=== PATIENT | male | born 1935 | race Hispanic/Latino ===

== ENCOUNTER 2017-01-22 22:55 | Inpatient (IN) | payer MEDICARE ==
[~2017-01-22 22:55] MED LIST: ISOVUE-370 76%-LOCM 1 ML ONE
[2017-01-22] MEDS ORDERED: Ondansetron HCl/PF 4 MG/2 ML Vial ONE (23:21)
[2017-01-22 23:28] LABS: #Basophils 0.1 thou/uL (0.0-0.2); #Eosinphils 0.2 thou/uL (0.0-0.7); #Lymphocytes 1.3 thou/uL (1.20-3.40); #Monocytes 0.6 thou/uL (0.11-0.59); #Neutrophils 11.4 thou/uL (1.40-6.50); %Basophils 0.4 % (0.0-1.0); %Eosinophils 1.1 % (0.0-10.0); %Lymphocytes 9.7 % (21.0-51.0); %Monocytes 4.6 % (0.0-10.0); Hematocrit 46.5 % (42.0-52.0); Red Blood Cell (RBC) Count 5.24 mill/uL (4.70-6.10); White Blood Cell (WBC) Count 13.6 thou/uL (4.8-10.8)
--- NOTE | 2017-01-22 23:49 | RAD ---
CHEST ONE VIEW ABDOMEN TWO VIEWS: History: 81-year-old male with epigastric pain for three hours without fever. FINDINGS: No significant acute process in the chest. There is a left ICD. There is a prominent air fluid level within the stomach. There is very little gas in the abdomen. There is an appearance of some possibl e fluid filled small bowel loops which raises the possibility of small bowel obstruction. Post-opera tive changes are noted in the pelvis, which are stable from a 11-14-16 study. IMPRESSION: Relative gas-less appearance to the abdomen with what appear to be some dilated fluid filled small b owel loops raising concern for small bowel obstruction. No free intraperitoneal air. No overt calcul us. POS: [facility]
[2017-01-22 23:57] LABS: Troponin I Less than 0.010 ng/mL (< 0.028)
[2017-01-23 00:23] LABS: ALT (SGPT) 18 U/L (8-55); AST (SGOT) 32 U/L (5-34); Alkaline Phosphatase 108 U/L (40-150); Anion Gap 19 mmol/L (10-20); BUN (Urea Nitrogen) 17 mg/dL (8.4-25.7); Bilirubin, Total 0.7 mg/dL (0.2-1.2); Calc. Creatinine Clearance 0 mL/min (70-130); Calcium 10.2 mg/dL (7.8-10.44); Carbon Dioxide 20 mmol/L (23-31); Chloride 104 mmol/L (98-107); Estimated GFR-MDRD 66; Globulin 3.9 g/dL (2.4-3.5); Protein, Total 8.8 g/dL (5.8-8.1)
[2017-01-23 01:34] LABS: Bilirubin Negative (Negative); Blood, Urine Negative (Negative); Glucose, Urine (Dipstick) Negative (Negative); Ketone, Urine Negative (Negative); Nitrite Negative (Negative); Protein, Urine (Dipstick) Negative (Neg-Trace); Urobilinogen 0.2 mg/dL (0.2-1.0)
[2017-01-23] MEDS ORDERED: Benzocaine 20% Spray 60 ML CAN ONE (01:54)
[2017-01-23] MEDS ORDERED: Pantoprazole 40 MG VIAL ONE (02:17)
[2017-01-23] MEDS ORDERED: Ondansetron HCl/PF 4 MG/2 ML Vial IVP PRN (03:08)
[2017-01-23] MEDS ORDERED: Fleet Enema 133 ML BOT PR PRN (03:08)
[2017-01-23] MEDS ORDERED: Bisacodyl 10 MG SUPP PR PRN (03:08)
[2017-01-23] MEDS ORDERED: Dextrose 5% in Water 1,000 ML IV PRN (03:08)
[2017-01-23] MEDS ORDERED: Dextrose 50% Abboject 50 ML SYRINGE SLOW IVP PRN (03:08)
[2017-01-23] MEDS ORDERED: HumaLOG 300 UNITS/3 ML VIAL SC PRN (03:08)
[2017-01-23] MEDS ORDERED: Acetaminophen 650 MG Suppository PR PRN (03:08)
[2017-01-23] MEDS ORDERED: Acetaminophen 325 MG TAB PO PRN (03:08)
[2017-01-23] MEDS ORDERED: Sodium Chloride 0.9% 1,000 ML IV SCH (03:15)
[2017-01-23 04:25] VITALS: BMI 29.0
[2017-01-23 05:59] LABS: Anion Gap 16 mmol/L (10-20); BUN (Urea Nitrogen) 17 mg/dL (8.4-25.7); Calc. Creatinine Clearance 74 mL/min (70-130); Calcium 9.2 mg/dL (7.8-10.44); Carbon Dioxide 18 mmol/L (23-31); Chloride 106 mmol/L (98-107); Estimated GFR-MDRD 84
--- NOTE | 2017-01-23 06:29 | HP ---
REASON FOR ADMISSION: Small-bowel obstruction. HISTORY OF PRESENTING ILLNESS: Patient gives history of abdominal pain, which started yesterday evening. This was in the epigastric area. He also had abdominal distention prior to arrival here. No complaints of chest pain, palpitations, PND, or orthopnea. The epigastric pain continued for 3 hours. As the pain continued, patient was brought to emergency room by his . Last bowel movement was yesterday and it appeared normal per patient. No complaints of nausea or vomiting. He has had an NG tube placed and has had some decompression done and feels a little better at present. PAST MEDICAL AND SURGICAL HISTORY: History of CHF with diastolic dysfunction. bradycardia with pacemaker placement, hypertension, chronic anemia, dyslipidemia , benign prostatic hypertrophy, irritable bowel syndrome, prior history of colon surgery done 20 to 30 years ago and he does not know exactly what was done , cholecystectomy, history of pelvic fracture with repair. PERSONAL HISTORY: Does not abuse alcohol or drugs. No history of smoking. FAMILY HISTORY: No history of heart disease. Lives with his and has three children ALLERGIES: To PENICILLIN. CURRENT MEDICATIONS AT HOME: Patient is on Lopid 600 mg p.o. twice daily, lisinopril 20 mg p.o. daily, Flomax 0.4 mg p.o. at bedtime, Lasix 20 mg p.o. daily, finasteride 5 mg p.o. daily, ferrous sulfate 325 mg p.o. daily, bisoprolol 10 mg p.o. daily, aspirin 81 mg p.o. daily. REVIEW OF SYSTEMS: The following complete review of systems was negative, unless otherwise mentioned in the HPI or below: Constitutional: Weight loss or gain, ability to conduct usual activities. Skin: Rash, itching. Eyes: Double vision, pain. ENT/Mouth: Nose bleeding, neck stiffness, pain, tenderness. Cardiovascular: Palpitations, dyspnea on exertion, orthopnea. Respiratory: Shortness of breath, wheezing, cough, hemoptysis, fever, or night sweats. Gastrointestinal: Poor appetite, abdominal pain, heartburn, nausea, vomiting, constipation, or diarrhea. Genitourinary: Urgency, frequency, dysuria, nocturia. Musculoskeletal: Pain, swelling. Neurologic/Psychiatric: Anxiety, depression. Allergy/Immunologic: Skin rash, bleeding tendency. PHYSICAL EXAMINATION: GENERAL: The patient is a 81-year-old male who is currently in mild distress from epigastric pain. VITAL SIGNS: Blood pressure 146/74, pulse 66 per minute, respiratory rate 18 per minute, temperature 98.3 degrees Fahrenheit, saturating 97% on room air. NECK: Supple, no elevated JVD. HEENT: Eyes: Extraocular muscles intact. Pupils reacting to light. Oral cavity mucous membranes are moist. No exudates or congestion. CARDIOVASCULAR SYSTEM: S1, S2 heard. Regular rhythm. RESPIRATORY SYSTEM: Air entry 1+ bilateral. No rales or rhonchi. ABDOMEN: Slightly tender in the epigastric area. No rigidity or guarding. There is mild distention. EXTREMITIES: No peripheral edema or calf tenderness. VASCULAR SYSTEM: Peripheral pulses 1+ bilateral. No ischemic ulcerations or gangrene. CENTRAL NERVOUS SYSTEM: No gross focal deficits seen. Patient is alert, awake , oriented x3. PSYCHIATRIC SYSTEM: The patient's mood is euthymic. No hallucinations or delusions. LABORATORY DATA AND X-RAY FINDINGS: White count of 13, H\T\H is 15 and 46, platelet count 247, MCV is 88 with 84% neutrophils. Electrolytes, serum bicarbonate is 20, BUN 17, creatinine 1.0, glucose 172. Liver enzymes are within normal limits. Albumin is 4.9. First set of cardiac enzymes are negative. Acute abdominal series x-ray done shows gastric distention with some dilated fluid-filled small bowels raising concern for small-bowel obstruction, no free air was seen. CLINICAL IMPRESSION AND PLAN: Patient will be admitted to surgical floor for small-bowel obstruction. He has had NG tube dropped and will be on intermittent suction. He will keep him n.p.o. He will be on normal saline at 70 mL per hour. We will hold off on all other medications for now. Pepcid 20 mg IV q.[address] Oh has been consulted from ER for General Surgery. We will continue to closely monitor him for any hemodynamic compromise. Please note, patient has a CT of the abdomen and pelvis done, the official reports are pending at present. Once his bowels start moving, he needs to be reinstituted with his home medications, specially cardiac meds. MTDD
[2017-01-23] MEDS ORDERED: Chloraseptic Spray 180 ml Bottle PO PRN (07:41)
--- NOTE | 2017-01-23 08:36 | RAD ---
POPRTABLE AP ABDOMINAL RADIOGRAPH: Date: 01-23-17 History: Epigastric pain for three hours. Afebrile. FINDINGS: Lower abdomen as well as right lateral abdomen are excluded from view on this exam. A nasogastric tu be is noted in place which overlying the abdomen with tip overlying the body of the stomach. There i s gaseous distention of the stomach. A dual-lead left subclavian cardiac pacemaking device is noted in place. Cardiac silhouette is magnified by projection, stable in size compared to study on 11-24-16. There is linear scarring versus atelectasis at the left lung base. Degenerative changes are seen in the spine. IMPRESSION: 1. Nasogastric tube noted in place with tip overlying the body of the stomach. There is gaseous dist ention of the stomach. 2. Exclusion of the lower abdomen as well as the pelvis. POS: [facility]
--- NOTE | 2017-01-23 08:39 | CT ---
PRELIMINARY REPORT/[facility]/EMERGENCY AFTER HOURS PROCEDURE: EXAM: CT Abdomen and Pelvis With Intravenous Contrast CLINICAL HISTORY: 81 years old, male; Pain; Abdominal pain; Generalized TECHNIQUE: Axial computed tomography images of the abdomen and pelvis with intravenous contrast. Coronal reformatted images were created and reviewed. CONTRAST: 100 mL of ISOVUE administered intravenously. COMPARISON: No relevant prior studies available. FINDINGS: LUNG BASES: Mild atelectasis and/or pulmonary parenchymal scarring. VASCULAR: Mild cardiac enlargement. Pacemaker leads are seen in the right heart. Mild atherosclerosis. No abdo sachin aortic aneurysm, dissection, or retroperitoneal hematoma. PERITONEAL : No free air or free fluid. GI: No hiatal hernia. The stomach is distended with an air fluid level and ingested material and gas. Small bowel loops are mildly distended throughout the central abdomen with fluid, upto 2.8 cm in bita meter. The terminal ileum is not distended. No focal point of transition is identified. Differential for bowel dilation could be secondary to gastroenteritis, ileus or mild/developing obstruction. Con eligibility consultant small bowel follow through for further assessment as clinically indicated. Scattered fecal material and gas within portions of the colon. Colonic postoperative changes are not ed at the sigmoid colon. Mildly elevated perirectal vascularity could be correlated from mild procti tis or hemorrhoids. HEPATOBILIARY, PANCREAS, SPLEEN: Sagittal hepatic length is 17 cm. The gallbladder has been removed. No significant biliary dilation. No pancreatic inflammation. Spleen not enlarged. ADRENALS, KIDNEYS, BLADDER, RETROPERITONEAL: Adrenals within normal limits. No hydronephrosis. Symmetric renal enhancement and excretion. Mild nonspecific perinephric stranding . Slightly thick walled urinary bladder may be artifact due to lack of distention. Heterogeneous enlarged prostate impressing along the base of the bladder. Mild torey-prostate hazines s noted. Clinical correlation for mild prostatitis. MUSCULOSKELETAL: Prominent fat within the right inguinal canal. Degenerative changes of the spine and within the pelvis. Fixation plate noted across the pubic symphysis. Right sacroiliac screw noted. IMPRESSION: No free air, free fluid or focal mesenteric inflammation. Gastrointestinal findings as discussed above, to be correlated clinically. Enlarged slightly heterogeneous prostate. Clinical correlation and followup is advised. Other incidental and non-emergent findings discussed above. Thank you for allowing us to participate in the care of your patient. Dictated and Authenticated by: Martin Zarco MD 01/23/2017 1:16 AM Central Time ([place] \T\ [place]) FINAL REPORT EMERGENT AFTER HOURS STUDY CT ABDOMEN WITH CONTRAST CT PELVIS WITH CONTRAST: Date: 01-23-17 History: Abdominal pain which started around 2000 hours after eating. Comparison: 08-25-15 IMPRESSION: 1. Mild cardiomegaly with cardiac pacemaking leads seen in right atrial appendage and in the right v entricle. 2. Bibasilar atelectasis. 3. Post cholecystectomy changes. 4. Mildly dilated fluid filled loops of small bowel without a definitive transition point seen, but there are more normal caliber loops of small bowel further distally. Findings may be related to a lo w grade partial small bowel obstruction or possibly ileus. 5. Post-surgical changes in the region of the sigmoid colon. 6. Enlargement of the prostate gland with the prostate measuring 6.8 cm in transverse dimensions. Th is was also seen on the prior study. Prostate gland is mildly enlarged. 7. Contrast is seen in the base of the urinary bladder, but as noted on the prior study, there are u rinary bladder calculi better seen on the prior study. There is no hydronephrosis seen. 8. Post-surgical changes right sacroiliac joint and involving the pubic bones. 9. Small fat containing right inguinal hernia. 10. Findings are in agreement with preliminary report by KYLE. Code QA POS: [facility]
[2017-01-23] MEDS ORDERED: FLU VACC TS2017-18 (>65YR) 0.5 ML SYRINGE IM ONE (09:00)
[2017-01-23] MEDS: Famotidine/PF 20 mg/2ml Vial SLOW IVP SCH ×2 (09:12→20:10)
[2017-01-23] MEDS: Heparin 5,000 UNITS/ML VIAL SC SCH ×2 (09:12→20:04)
--- NOTE | 2017-01-23 15:51 | PDOC.PN ---
- Subjective Encounter Start Date: 01/23/17 Encounter Start Time: 15:35 Subjective: f/u for ? SBO vs Ileus and SBFT today. No evidence of obstruction and -: pt denies any abd complaints. - Objective Resuscitation Status: Resuscitation Status FULL:Full Resuscitation MAR Reviewed: Yes Vital Signs & Weight: Vital Signs (12 hours) Temp Pulse Resp BP Pulse Ox 01/23/17 11:23 98.2 F 62 16 164/81 H 98 01/23/17 08:00 97.6 F 87 16 01/23/17 07:32 97.6 F 87 16 165/81 H 99 I&O: 01/22/17 01/23/17 01/24/17 06:59 06:59 06:59 Intake Total 280 Output Total 150 Balance 130 Result Diagrams: 01/22/17 23:20 01/23/17 04:54 Additional Labs: Accuchecks 01/23/17 01/23/17 11:22 05:05 POC Glucose 115 H 153 H Radiology Reviewed by me: Yes (SBFT - negative) Phys Exam - Physical Examination Constitutional: NAD NGT in R nares HEENT: PERRLA, oral pharynx no lesions Neck: no JVD, supple Respiratory: no wheezing, clear to auscultation bilateral Cardiovascular: RRR Gastrointestinal: soft, non-tender, no distention, positive bowel sounds Musculoskeletal: no edema, pulses present Neurological: normal sensation, moves all 4 limbs Psychiatric: A&O x 3 Skin: normal turgor, cap refill <2 seconds Dx/Plan (1) Ileus Code(s): K56.7 - ILEUS, UNSPECIFIED Status: Acute Comment: Resolved, SBFT negative, d/c NGT, clear liquids as tolerated (2) CKD (chronic kidney disease) stage 2, GFR 60-89 ml/min Code(s): N18.2 - CHRONIC KIDNEY DISEASE, STAGE 2 (MILD) Status: Chronic Comment: Stable, continue to monitor clinically (3) HTN (hypertension) Code(s): I10 - ESSENTIAL (PRIMARY) HYPERTENSION Status: Chronic Qualifiers: Hypertension type: essential hypertension Qualified Code(s): I10 - Essential (primary) hypertension Comment: Resume home BP regimen (4) Hyperglycemia Code(s): R73.9 - HYPERGLYCEMIA, UNSPECIFIED Status: Chronic Comment: Continue supportive measures, ADA diet, no specific dx of DM - Plan plan discussed w/ family, out of bed/ambulate, DVT proph w/SCDs Stable overall -: D/C NGT -: Saline lock IVF's -: Clear liquid diet -: Likely home in 24h * .
[2017-01-23] MEDS ORDERED: Furosemide 20 MG TAB PO PRN (15:56)
--- NOTE | 2017-01-23 16:04 | RAD ---
GASTROGRAFIN SMALL BOWEL FOLLOW THROUGH: 01/23/17 HISTORY: Abdominal pain. Obstruction. FINDINGS: Abdominal pain. Obstruction. FINDINGS: Gastrografin contrast was administered through the nasogastric tube. Nondilated small bowel is opaci fied on the early images. Contrast reaches the colon at one hour. IMPRESSION: No evidence of significant small bowel obstruction. POS: [facility]
[2017-01-23] MEDS ORDERED: MD-Gastroview 120 ML BOT ONE (16:44)
[2017-01-23] MEDS: Famotidine 20 MG TAB PO SCH (20:11)
[2017-01-23] MEDS ORDERED: Tamsulosin HCl 0.4 MG CAP PO SCH (21:00)
[2017-01-24] MEDS ORDERED: Gemfibrozil 600 MG TAB PO SCH (07:30)
[2017-01-24] MEDS: Famotidine 20 MG TAB PO SCH (08:46)
[2017-01-24] MEDS: Heparin 5,000 UNITS/ML VIAL SC SCH (08:49)
[2017-01-24] MEDS ORDERED: Ferrous Gluconate 324 MG TAB PO SCH (09:00)
[2017-01-24] MEDS ORDERED: Finasteride 5 MG TAB PO SCH (09:00)
[2017-01-24] MEDS ORDERED: Aspirin 81 mg Enteric Coated Tablet PO SCH (09:00)
[2017-01-24] MEDS ORDERED: Lisinopril 20 MG TAB PO SCH (09:00)
[2017-01-24] MEDS ORDERED: Bisoprolol Fumarate 5 MG TAB PO SCH (09:00)
[2017-01-24] MEDS ORDERED: FERROUS GLUCONATE 325 MG PO SCH (09:00)
--- NOTE | 2017-01-24 10:19 | PDOC.PN ---
- Subjective Encounter Start Date: 01/24/17 Encounter Start Time: 07:55 -: old records requested/rev Patient seen and examined. No new complaints. No overnight events - Objective Resuscitation Status: Resuscitation Status FULL:Full Resuscitation MAR Reviewed: Yes Vital Signs & Weight: Vital Signs (12 hours) Temp Pulse Resp BP BP Pulse Ox 01/24/17 08:46 143/73 H 01/24/17 08:00 98.2 F 63 16 99 01/24/17 07:04 98.2 F 63 16 143/73 H 99 01/24/17 03:52 98.1 F 71 20 126/80 96 01/24/17 00:00 97.9 F 62 18 143/78 H 94 L I&O: 01/23/17 01/24/17 01/25/17 06:59 06:59 06:59 Intake Total 520 480 Output Total 150 Balance 370 480 Result Diagrams: 01/22/17 23:20 01/23/17 04:54 Additional Labs: Accuchecks 01/23/17 11:22 POC Glucose 115 H Radiology Reviewed by me: Yes Phys Exam - Physical Examination Constitutional: NAD HEENT: PERRLA, moist MMs, sclera anicteric Neck: no JVD, supple Respiratory: no wheezing, no rales, no rhonchi Cardiovascular: RRR, no significant murmur, no rub Gastrointestinal: soft, non-tender, no distention, positive bowel sounds Musculoskeletal: no edema, pulses present Neurological: non-focal, normal sensation, moves all 4 limbs Psychiatric: normal affect, A&O x 3 Skin: no rash, normal turgor Dx/Plan (1) Ileus Code(s): K56.7 - ILEUS, UNSPECIFIED Status: Resolved Comment: (2) BPH (benign prostatic hyperplasia) Code(s): N40.0 - BENIGN PROSTATIC HYPERPLASIA WITHOUT LOWER URINRY TRACT SYMP Status: Chronic (3) CKD (chronic kidney disease) stage 2, GFR 60-89 ml/min Code(s): N18.2 - CHRONIC KIDNEY DISEASE, STAGE 2 (MILD) Status: Chronic Comment: Stable, continue to monitor clinically (4) Dyslipidemia Code(s): E78.5 - HYPERLIPIDEMIA, UNSPECIFIED Status: Chronic (5) HTN (hypertension) Code(s): I10 - ESSENTIAL (PRIMARY) HYPERTENSION Status: Chronic Qualifiers: Hypertension type: essential hypertension Qualified Code(s): I10 - Essential (primary) hypertension Comment: Resume home BP regimen - Plan cont current plan of care, plan discussed w/ family * medication reviewed as below * symptomatic treatment * if tolerates lunch, will discharge later today * see discharge ana cristina. Review of Systems - Review of Systems ENT: negative: Ear Pain, Ear Discharge, Nose Pain, Nose Discharge, Nose Congestion, Mouth Pain, Mouth Swelling, Throat Pain, Throat Swelling, Other Respiratory: negative: Cough, Dry, Shortness of Breath, Hemoptysis, SOB with Excertion, Pleuritic Pain, Sputum, Wheezing Gastrointestinal: negative: Nausea, Vomiting, Abdominal Pain, Diarrhea, Constipation, Melena, Hematochezia, Other Genitourinary: negative: Dysuria, Frequency, Incontinence, Hematuria, Retention , Other Musculoskeletal: negative: Neck Pain, Shoulder Pain, Arm Pain, Back Pain, Hand Pain, Leg Pain, Foot Pain, Other Skin: negative: Rash, Lesions, Andrea, Bruising, Other - Medications/Allergies Allergies/Adverse Reactions: Allergies Allergy/AdvReac Type Severity Reaction Status Date / Time cephalexin [From Keflex] Allergy Mild Rash Verified 11/25/16 20:48 Medications: Current Medications Acetaminophen (Tylenol) 650 mg MI Q4H PRN PRN Reason: Headache/Fever or Pain Acetaminophen (Tylenol) 650 mg PO Q4H PRN PRN Reason: Headache/Fever or Pain Aspirin (Ecotrin) 81 mg PO DAILY [facility] Last Admin: 01/24/17 08:46 Dose: 81 mg Bisacodyl (Dulcolax) 10 mg MI Q24H PRN PRN Reason: Constipation Bisoprolol Fumarate (Zebeta) 10 mg PO DAILY [facility] Last Admin: 01/24/17 08:48 Dose: 10 mg Dextrose/Water (Dextrose 50%) 25 gm SLOW IVP PRN PRN PRN Reason: Hypoglycemia Famotidine (Pepcid) 20 mg PO BID [facility] Last Admin: 01/24/17 08:46 Dose: 20 mg Ferrous Gluconate (Fergon) 324 mg PO DAILY [facility] Last Admin: 01/24/17 08:47 Dose: 324 mg Finasteride (Proscar) 5 mg PO DAILY [facility] Last Admin: 01/24/17 08:47 Dose: 5 mg Furosemide (Lasix) 20 mg PO DAILY PRN PRN Reason: Weight gain >3 lbs in 2 days Gemfibrozil (Lopid) 600 mg PO BID-AC [facility] Last Admin: 01/24/17 08:48 Dose: 600 mg Glucagon (Glucagon) 1 mg IM PRN PRN PRN Reason: Hypoglycemia Heparin Sodium (Porcine) (Heparin) 5,000 units SC BID [facility] Last Admin: 01/24/17 08:49 Dose: 5,000 units Dextrose/Water (D5w) 1,000 mls @ 0 mls/hr IV .Q0M PRN; As Directed PRN Reason: Hypoglycemia Insulin Human Lispro (Humalog) 0 units SC .MODERATE SLIDING SC PRN PRN Reason: Moderate Correctional Scale Lisinopril (Zestril) 20 mg PO DAILY [facility] Last Admin: 01/24/17 08:46 Dose: 20 mg Ondansetron HCl (Zofran) 4 mg IVP Q6H PRN PRN Reason: Nausea/Vomiting Phenol (Chloraseptic Tabor 180 Ml Bot) 0 ml PO PRN PRN PRN Reason: Pain Last Admin: 01/23/17 09:40 Dose: 1 spr Sodium Biphosphate/Sodium Phosphate (Fleet Enema) 133 ml MI ONE PRN PRN Reason: Constipation Stop: 01/26/17 03:09 Sodium Chloride (Flush - Normal Saline) 10 ml IVF Q12HR [facility] Last Admin: 01/24/17 08:49 Dose: Not Given Sodium Chloride (Flush - Normal Saline) 10 ml IVF PRN PRN PRN Reason: Saline Flush Tamsulosin HCl (Flomax) 0.4 mg PO HS [facility] Last Admin: 01/23/17 20:04 Dose: 0.4 mg
--- NOTE | 2017-01-24 11:24 | DIS ---
DATE OF ADMISSION: 01/23/2017 DATE OF DISCHARGE: 01/24/2017 PRIMARY CARE PHYSICIAN: Madie Ellis M.D. DISCHARGE DISPOSITION: Home. PRIMARY DISCHARGE DIAGNOSIS: Ileus, resolved. SECONDARY DISCHARGE DIAGNOSES: Benign enlargement of prostate, chronic kidney disease stage 2, hype rtension, and dyslipidemia. PRIMARY PROCEDURE/OPERATION: None. RADIOLOGICAL INVESTIGATION: Abdomen and pelvis CT scan on admission showed bibasilar atelectasis, f indings suspicious for low grade partial small-bowel obstruction versus ileus, enlarged prostate, in guinal hernia. Abdomen x-ray next day showed nonspecific bowel gas pattern with NG tube. Small bow el x-ray showed resolution of small-bowel obstruction. SIGNIFICANT LABORATORY DATA: Hemoglobin 15.6, creatinine 0.88, sodium 136. LFTs normal. Cardiac e nzymes negative. Urinalysis normal. DISCHARGE MEDICATIONS: Aspirin 81 mg p.o. daily, bisoprolol 10 mg p.o. daily, ferrous gluconate 325 mg p.o. daily, Proscar 5 mg p.o. daily, Lasix 20 mg p.o. daily p.r.n., Lopid 600 mg p.o. b.i.d., li sinopril 20 mg p.o. daily, Flomax 0.4 mg p.o. at bedtime. CONTRAINDICATIONS: None. CODE STATUS: FULL CODE. INPATIENT MGMT CONSULTANT: Dr. Oh was consulted while in hospital. TEST RESULTS PENDING ON DISCHARGE: None. ALLERGIES: KEFLEX. DISCHARGE PLAN: Post hospital, the patient will follow up with primary care physician in 1 week. HOSPITAL COURSE: A 81-year-old male who was admitted by Dr. Braxton. Please see his H\T\P for further details. The patient mainly came to emergency room with generalized abdominal pain, predomi nantly in epigastric region. In the emergency room, he had CT of the abdomen and pelvis which suspe cted partial small-bowel obstruction versus ileus. He was admitted to medical floor. He was treate d with NG tube with low intermittent suction. Next day, we did small bowel x-ray which showed impro vement in bowel gas pattern and we also did small bowel x-ray that also showed resolution of small-b owel obstruction, most likely this patient had ileus rather than small-bowel obstruction. Dr. Parre nt saw this patient while in hospital, we advanced his diet. The patient is tolerating his diet tod y well. After lunch, if he still continued to tolerate his diet, then we will consider discharging him home on oral medication. The patient is seen and examined at bedside today. Please see my progress note from today for furth er details.
[2017-01-24 11:30] VITALS: BP 130/76; TEMP 98.1
== END 2017-01-24 13:53 | disposition home or self-care (01) | DRG 389 ==
LOC: ERS 22:55 → T4-B 01-23 01:45
PROVIDERS: ADMIT Internal Medicine; ATTEND Internal Medicine
DX: K56.7 Ileus, unspecified (principal); I50.32 Chronic diastolic (congestive) heart failure; D64.9 Anemia, unspecified; I13.0 Hypertensive heart and chronic kidney disease with heart failure and stage 1 through stage 4 chronic kidney disease, or unspecified chronic kidney disease; J98.11 Atelectasis; Z95.0 Presence of cardiac pacemaker; E78.5 Hyperlipidemia, unspecified; N40.0 Benign prostatic hyperplasia without lower urinary tract symptoms; K58.9 Irritable bowel syndrome, unspecified; Z88.0 Allergy status to penicillin; Z79.82 Long term (current) use of aspirin; N18.2 Chronic kidney disease, stage 2 (mild); K40.90 Unilateral inguinal hernia, without obstruction or gangrene, not specified as recurrent
CPT/HCPCS: 36415; 36416; 74000; 74022; 74177; 74250; 80048; 80053; 81003; 82553; 84484; 85025; 90471; 90682; 93005; 96374; 96375; A4216; C9113; G0008; J1644; J2270; J2405; Q2036; S0028

== ENCOUNTER 2017-06-11 10:12 | Outpatient (CLI) | payer MEDICARE | END 2017-06-11 10:13 | disposition home or self-care (01) | LOC: BICRAD 10:12 | PROVIDERS: ATTEND Family Medicine | DX: M54.5 Low back pain (principal); M16.11 Unilateral primary osteoarthritis, right hip; Z98.890 Other specified postprocedural states | CPT/HCPCS: 72202 ==

== ENCOUNTER 2018-09-12 13:01 | Emergency (ER) | payer MEDICARE ==
[2018-09-12 13:59] LABS: #Eosinphils 0.2 thou/uL (0.0-0.7); #Lymphocytes 1.7 thou/uL (1.20-3.40); #Monocytes 0.5 thou/uL (0.11-0.59); #Neutrophils 6.1 thou/uL (1.40-6.50); %Basophils 0.3 % (0.0-1.0); %Eosinophils 2.1 % (0.0-10.0); %Lymphocytes 20.3 % (21.0-51.0); %Monocytes 5.5 % (0.0-10.0); %Neutrophils 71.8 % (42.0-75.0); Hemoglobin 14.1 g/dL (14.0-18.0); Mean Corpuscular HGB CONC 34.2 g/dL (32.0-36.0); Mean Corpuscular Hemoglobin 29.8 pg (27.0-31.0); Mean Corpuscular Volume 87.2 fL (78.0-98.0); Mean Platelet Volume 7.1 fL (7.4-10.4); Platelet Count 217 thou/uL (130-400); RBC Distribution Width 12.3 % (11.5-14.5); Red Blood Cell (RBC) Count 4.73 mill/uL (4.70-6.10); White Blood Cell (WBC) Count 8.5 thou/uL (4.8-10.8)
--- NOTE | 2018-09-12 14:01 | CT ---
EXAM: Abdomen and pelvic CT scan without contrast: HISTORY: Abdominal pain COMPARISON: 01/23/2017 FINDINGS: The visualized lung bases are clear. Liver: Unremarkable. Gallbladder:Postop cholecystectomy. Pancreas:Unremarkable Spleen:Unremarkable. Adrenal glands:Unremarkable. Kidneys:No renal calculus or acute obstruction.Postsurgical changes with anastomosis in the region of the rectosigmoid. No evidence for bowel obstruction. No CT evidence for acute appendicitis. Multiple bladder calculi. Small stable defect in the right lateral anterior abdominal wall with a small fat-containing hernia p ossibly related to prior surgery. Bilateral fat-containing inguinal hernias larger on the right side. Enlargement of the prostate gland . Postsurgical changes of the pelvis. No abscess, adenopathy, or abnormal fluid collection within the abdomen or pelvis. IMPRESSION: No significant acute process in the abdomen or pelvis. Multiple bladder calculi. Other findings as ab ove.
[2018-09-12 14:19] LABS: Bilirubin Negative (Negative); Blood, Urine Negative (Negative); Clarity CLEAR (Clear); Glucose, Urine (Dipstick) >=1000 mg/dL (Negative); Leukocyte Negative (Negative); Nitrite Positive (Negative); Protein, Urine (Dipstick) Negative (Neg-Trace); Specific Gravity, Urine 1.039 (1.002-1.036); Urobilinogen 0.2 mg/dL (0.2-1.0); pH, Urine 5.5 (5.0-9.0)
[2018-09-12 14:21] LABS: ALT (SGPT) 18 U/L (8-55); AST (SGOT) 20 U/L (5-34); Albumin 4.5 g/dL (3.4-4.8); Alkaline Phosphatase 121 U/L (40-150); Anion Gap 12 mmol/L (10-20); BUN (Urea Nitrogen) 14 mg/dL (8.4-25.7); Bilirubin, Total 0.6 mg/dL (0.2-1.2); Calc. Creatinine Clearance 0 mL/min (70-130); Calcium 9.6 mg/dL (7.8-10.44); Carbon Dioxide 25 mmol/L (23-31); Chloride 101 mmol/L (98-107); Estimated GFR-MDRD 58; Globulin 2.9 g/dL (2.4-3.5); Glucose 334 mg/dL (83-110); Lipase 30 U/L (8-78); Potassium 4.2 mmol/L (3.5-5.1); Protein, Total 7.4 g/dL (5.8-8.1); Sodium 134 mmol/L (136-145)
[2018-09-12 14:23] LABS: Hyaline Casts/LPF 0-3 HYALINE CAST LPF (0-3 Hyaline); RBC/HPF 0-3 HPF (0-3); Squamous Epithelial None Seen HPF (0-3); WBC/HPF 0-3 HPF (0-3)
[2018-09-12 14:37] LABS: Bacteria/HPF 1+ HPF (None Seen)
[2018-09-12] MEDS ORDERED: Ketorolac Tromethamine 30 MG/ML VIAL ONE (14:53)
== END 2018-09-12 15:26 | disposition home or self-care (01) ==
LOC: ERS 13:01
DX: N39.0 Urinary tract infection, site not specified (principal); R73.9 Hyperglycemia, unspecified; I25.10 Atherosclerotic heart disease of native coronary artery without angina pectoris; I10 Essential (primary) hypertension
CPT/HCPCS: 36415; 74176; 80053; 81003; 81015; 83690; 85025; 87086; 96372; J1885

== ENCOUNTER 2022-06-12 15:00 | Emergency (ER) | payer OTHER, MEDICARE ==
[2022-06-12] MEDS ORDERED: Ketorolac Tromethamine 30 MG/ML VIAL ONE (17:17)
== END 2022-06-12 20:55 | disposition home or self-care (01) ==
LOC: ERS 15:00
DX: S70.01XA Contusion of right hip, initial encounter (principal); E11.9 Type 2 diabetes mellitus without complications; E78.00 Pure hypercholesterolemia, unspecified; I10 Essential (primary) hypertension; I25.10 Atherosclerotic heart disease of native coronary artery without angina pectoris; W01.0XXA Fall on same level from slipping, tripping and stumbling without subsequent striking against object, initial encounter
CPT/HCPCS: 72131; 72170; 96372; J1885